=== PATIENT | female | born 1980 | race Asian ===

== ENCOUNTER 2016-11-08 08:41 | Day surgery (SDC) | payer MEDICAID ==
[2016-11-08] MEDS ORDERED: LACTATED RINGERS 1,000 ML IV ONE (09:15)
[2016-11-08] MEDS ORDERED: MIDAZOLAM 2 MG/2 ML VIAL IVP ONE (10:26)
[2016-11-08] MEDS ORDERED: fentaNYL 250 MCG/5 ML VIAL IVP ONE (10:26)
[2016-11-08] MEDS ORDERED: LACTATED RINGERS 800 ML IV ONE (10:32)
== END 2016-11-08 08:42 | disposition home or self-care (01) ==
PROC: 0DJD8ZZ Inspection of Lower Intestinal Tract, Via Natural or Artificial Opening Endoscopic (ICD-10-PCS; principal; 2016-11-08 10:00)
DX: Z12.11 Encounter for screening for malignant neoplasm of colon (principal); K64.0 First degree hemorrhoids; K63.4 Enteroptosis; Z80.0 Family history of malignant neoplasm of digestive organs
CPT/HCPCS: 45378; J3010; J7120

== ENCOUNTER 2018-01-21 08:00 | Outpatient (CLI) | payer MEDICAID ==
[2018-01-22 12:40] LABS: HGB - HEMOGLOBIN 11.2 g/dL (12.0-16.0); MEAN CORPUSCULAR HEMOGLOBIN 23.9 pg (27.0-31.0); MEAN CORPUSCULAR HGB CONC 32.2 g/dL (32.0-36.0); MEAN CORPUSCULAR VOLUME 74.3 fL (81.0-99.0); MEAN PLATELET VOLUME 7.9 fL (7.9-10.8); RED BLOOD COUNT 4.69 10^6/uL (4.20-5.40); RED CELL DISTRIBUTION WIDTH 17.7 % (12.0-15.0); WHITE BLOOD COUNT 7.9 x10^3/uL (4.8-10.8)
[2018-01-22 13:05] LABS: ALBUMIN 3.4 g/dL (3.2-5.5); ALBUMIN/GLOBULIN RATIO 0.9 (1.0-2.2); BILIRUBIN,TOTAL 0.3 mg/dL (0.2-1.0); CALCIUM 8.4 mg/dL (8.5-10.3); CREATININE 0.5 mg/dL (0.4-1.0); CRP - C-REACTIVE PROTEIN 1.6 mg/dL (0-1.0); TOTAL PROTEIN 7.2 g/dL (6.7-8.2)
[2018-01-22 13:07] LABS: RHEUMATOID FACTOR NEGATIVE (Negative)
[2018-01-24 13:36] LABS: ANA SCREEN NEGATIVE (NEGATIVE)
== END 2018-01-21 08:01 | disposition home or self-care (01) ==
LOC: LAB.N 08:00
PROVIDERS: ATTEND Family Medicine
DX: M25.561 Pain in right knee (principal); E66.01 Morbid (severe) obesity due to excess calories; I63.40 Cerebral infarction due to embolism of unspecified cerebral artery
CPT/HCPCS: 36415; 80053; 85027; 85651; 86038; 86140; 86430

== ENCOUNTER 2018-11-14 17:06 | Outpatient (CLI) | payer MEDICAID | END 2018-11-14 17:07 | disposition critical access hospital (66) | LOC: EMS 17:06 | PROVIDERS: ATTEND Surgery | DX: R10.9 Unspecified abdominal pain (principal); R41.82 Altered mental status, unspecified | CPT/HCPCS: A0425; A0427; A0999 ==

== ENCOUNTER 2018-11-14 17:35 | Emergency (ER) | payer MEDICAID ==
[2018-11-14] MEDS ORDERED: MAG HYDROX/AL HYDROX/SIMETH 30 ML UDC PO STA (17:58)
[2018-11-14] MEDS ORDERED: LIDOCAINE VISCOUS 2% 15 ML UDC MM STA (17:58)
[2018-11-14] MEDS ORDERED: SODIUM CHLORIDE 0.9% 1,000 ML IV ONE (17:59)
[2018-11-14] MEDS ORDERED: ONDANSETRON 4 MG/2 ML VIAL IVP STA (17:59)
--- NOTE | 2018-11-14 18:00 | ED Physician Documentation ---
PD HPI ABD PAIN - Stated complaint Stated Complaint: ABD PX - Chief complaint Chief Complaint: Abd Pain - History obtained from History obtained from: Patient (In Contrast to the nurse's notes, she speaks [place] fine.) - History of Present Illness Timing - onset: Today (All day she has had epigastric nonradiating pain and vomiting without diarrhea. No sick contacts or fever. 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 - Present Medications Home Medications: Ambulatory Orders Medication Instructions Recorded Confirmed Acetaminophen 325 mg PO PRN PRN 02/14/17 02/14/17 Etodolac [Lodine] 400 mg PO BID 02/14/17 02/14/17 Metformin HCl 1,000 mg PO BID 02/14/17 02/14/17 Famotidine [Pepcid] 20 mg PO BID #60 tablet 11/14/18 - Allergies Allergies/Adverse Reactions: Allergies Allergy/AdvReac Type Severity Reaction Status Date / Time No Known Drug Allergies Allergy Verified 11/14/18 17:43 - Social History Does the pt smoke?: No Smoking Status: Never smoker Does the pt drink ETOH?: No Does the pt have substance abuse?: No - Immunizations Immunizations are current?: Yes PD ED PE NORMAL - Vitals Vital signs reviewed: Yes - General General: Alert and oriented X 3, No acute distress - Cardiac Cardiac: RRR, No murmur - Respiratory Respiratory: No respiratory distress, Clear bilaterally - Abdomen Abdomen: Other (Moderate epigastric tenderness without surgical signs) - Back Back: No CVA TTP, No spinal TTP - Extremities Extremities: No edema, No calf tenderness / cord - Neuro Neuro: Alert and oriented X 3, Normal speech Results - Vitals Vitals: Vital Signs - 24 hr 11/14/18 11/14/18 17:36 18:35 Temperature 37.0 C Heart Rate 96 87 Respiratory 16 16 Rate Blood Pressure 172/89 H 153/94 H O2 Saturation 100 98 Oxygen O2 Source Room air - Labs Labs: Laboratory Tests 11/14/18 11/14/18 11/14/18 18:05 18:05 18:52 WBC 12.8 H RBC 4.73 Hgb 10.4 L Hct 33.2 L MCV 70.2 L MCH 22.1 L MCHC 31.4 L RDW 16.8 H Plt Count 314 MPV 7.0 L Neut # (Auto) 10.7 H Lymph # (Auto) 1.7 [place] # (Auto) 0.4 Eos # (Auto) 0.0 Baso # (Auto) 0.1 Absolute Nucleated RBC 0.00 Nucleated RBC % 0.0 Sodium 137 Potassium 3.6 Chloride 102 Carbon Dioxide 24 Anion Gap 11.0 BUN 11 Creatinine 0.5 Estimated GFR (MDRD) 137 Glucose 142 H Calcium 8.6 Total Bilirubin 0.4 AST 24 ALT 28 Alkaline Phosphatase 71 Total Protein 7.7 Albumin 3.6 Globulin 4.1 Albumin/Globulin Ratio 0.9 L Lipase 40 Urine Color YELLOW Urine Clarity CLEAR Urine pH 7.5 Ur Specific [place] 1.010 Urine Protein NEGATIVE Urine Glucose (UA) NEGATIVE Urine Ketones TRACE Urine Occult Blood NEGATIVE Urine Nitrite NEGATIVE Urine Bilirubin NEGATIVE Urine Urobilinogen 0.2 (NORMAL) Ur Leukocyte Esterase NEGATIVE Ur Microscopic Review NOT INDICATED Urine Culture Comments NOT INDICATED Urine HCG, Qual NEGATIVE PD MEDICAL DECISION MAKING - ED course ED course: This is a 38-year-old woman with acute epigastric pain and vomiting but no diarrhea. Seems most like gastritis. She felt much better after IV fluids and a GI cocktail although still had pain but declined any pain medication per se. She was completely nontender on reevaluation. Close follow-up and appendicitis were precautions were given. Departure - Departure Disposition: 01 Home, Self Care Clinical Impression: Abdominal pain Qualifiers: Abdominal location: epigastric Qualified Code(s): R10.13 - Epigastric pain Vomiting Qualifiers: Vomiting type: unspecified Vomiting Intractability: non-intractable Nausea presence: with nausea Qualified Code(s): R11.2 - Nausea with vomiting, unspecified Condition: Good Record reviewed to determine appropriate education?: Yes Instructions: ED Nausea Vomiting, Abdominal Pain Prescriptions: Famotidine [Pepcid] 20 mg PO BID #60 tablet Comments: Return in 12-18 hours if not better, anytime if worsening symptoms or new symptoms develop, especially right lower quadrant pain as I showed you. Follow- up with your doctor for reevaluation
[2018-11-14 18:17] LABS: BASOPHILS # (AUTO) 0.1 10^3/uL (0.0-0.1); BASOPHILS % (AUTO) 0.4 %; EOSINOPHILS % (AUTO) 0.1 %; HGB - HEMOGLOBIN 10.4 g/dL (12.0-16.0); LYMPHOCYTES # (AUTO) 1.7 10^3/uL (1.5-3.5); MEAN CORPUSCULAR HEMOGLOBIN 22.1 pg (27.0-31.0); MEAN CORPUSCULAR HGB CONC 31.4 g/dL (32.0-36.0); MEAN CORPUSCULAR VOLUME 70.2 fL (81.0-99.0); MONOCYTES # (AUTO) 0.4 10^3/uL (0.0-1.0); MONOCYTES % (AUTO) 3.1 %; NEUTROPHILS # (AUTO) 10.7 10^3/uL (1.5-6.6); NEUTROPHILS % (AUTO) 83.4 %; PLT - PLATELET COUNT 314 10^3/uL (130-450); RED BLOOD COUNT 4.73 10^6/uL (4.20-5.40); RED CELL DISTRIBUTION WIDTH 16.8 % (12.0-15.0); WHITE BLOOD COUNT 12.8 x10^3/uL (4.8-10.8)
[2018-11-14 18:33] LABS: ALBUMIN 3.6 g/dL (3.2-5.5); ALBUMIN/GLOBULIN RATIO 0.9 (1.0-2.2); BILIRUBIN,TOTAL 0.4 mg/dL (0.2-1.0); CALCIUM 8.6 mg/dL (8.5-10.3); CREATININE 0.5 mg/dL (0.4-1.0); TOTAL PROTEIN 7.7 g/dL (6.7-8.2)
[2018-11-14 19:04] LABS: BILIRUBIN,URINE NEGATIVE (NEGATIVE); GLUCOSE, URINE (UA) NEGATIVE (NEGATIVE); KETONES,URINE (UA) TRACE mg/dL (NEGATIVE); LEUKOCYTE ESTERASE, URINE NEGATIVE (NEGATIVE); NITRITE,URINE NEGATIVE (NEGATIVE); OCCULT BLOOD,URINE NEGATIVE (NEGATIVE); PH,URINE 7.5 PH (5.0-7.5); PROTEIN,URINE NEGATIVE (NEGATIVE); UROBILINOGEN,URINE 0.2 (NORMAL) E.U./dL (NORMAL)
[2018-11-14 19:05] LABS: CLARITY,URINE CLEAR (CLEAR)
[2018-11-14 19:06] LABS: HCG UR QUAL NEGATIVE
[2018-11-14] MEDS ORDERED: FAMOTIDINE 20 MG TABLET PO STA (19:39)
[2018-11-14] MEDS ORDERED: ONDANSETRON ODT 4 MG Prepack 2 TL STA (19:39)
[2018-11-14 19:51] VITALS: BP 152/91
== END 2018-11-14 19:51 | disposition home or self-care (01) ==
LOC: EDUNIT# → ED 17:35
DX: R10.31 Right lower quadrant pain (principal); R11.2 Nausea with vomiting, unspecified; I10 Essential (primary) hypertension; E11.9 Type 2 diabetes mellitus without complications
CPT/HCPCS: 36415; 80053; 81003; 81025; 83690; 85025; 99283; 99284; A9270; 81001; 87086

== ENCOUNTER 2022-07-03 13:11 | Outpatient (CLI) | payer OTHER, MEDICAID | END 2022-07-03 23:59 | disposition critical access hospital (66) | LOC: EMS 13:11 | DX: M54.2 Cervicalgia (principal); R51.9 Headache, unspecified; M25.551 Pain in right hip; V43.52XA Car driver injured in collision with other type car in traffic accident, initial encounter; Y92.414 Local residential or business street as the place of occurrence of the external cause | CPT/HCPCS: A0425; A0429 ==

== ENCOUNTER 2022-07-03 13:33 | Emergency (ER) | payer OTHER, MEDICAID ==
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
[2022-07-03] MEDS: IBUPROFEN 600 MG TABLET PO STA (13:50)
[2022-07-03 14:43] VITALS: BP 130/88
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
== END 2022-07-03 14:42 | disposition home or self-care (01) ==
LOC: EDUNIT# → ED 13:33
DX: S13.4XXA Sprain of ligaments of cervical spine, initial encounter (principal); R51.9 Headache, unspecified; M25.551 Pain in right hip; V43.52XA Car driver injured in collision with other type car in traffic accident, initial encounter; E66.9 Obesity, unspecified; Z68.41 Body mass index [BMI] 40.0-44.9, adult; I10 Essential (primary) hypertension; E11.9 Type 2 diabetes mellitus without complications
CPT/HCPCS: 72040; 73502; 99282; 99284; A9270